=== PATIENT | female | born 1970 | race Caucasian/White ===

== ENCOUNTER 2017-03-04 06:50 | Inpatient (IN) | payer OTHER ==
[~2017-03-04] VITALS: Ht 172.7 cm; Wt 114.8 kg
[~2017-03-04 06:50] MED LIST: CHOL20003 PO; CYCL-259 PO; DEXA4TAB PO; DOXY100T PO; HYDR1TAB12 PO; IBUP-1222 PO; LEVO137T2 PO; LEVO200T PO; LEVO200T5 PO; OMEP-110 PO; PREN1TAB60 PO
[2017-03-04] MEDS ORDERED: SODIUM CHLORIDE 0.9% 1,000 ML IV ONE ×2 (07:16→10:26)
[2017-03-04] MEDS ORDERED: SODIUM CHLORIDE 0.9% 1,000ML IVBOLUS ONE (07:30)
[2017-03-04] MEDS ORDERED: ONDANSETRON 2MG/ML, 2ML IVPush ONE (07:30)
[2017-03-04] MEDS ORDERED: FAMOTIDINE 20 MG/2 ML IVP ONE (07:30)
[2017-03-04] MEDS ORDERED: MORPHINE SULFATE 4 MG/ML, 1ML IVPush PRN (07:30)
[2017-03-04] MEDS ORDERED: FAMOTIDINE 20 MG/2 ML ONE (07:40)
[2017-03-04] MEDS ORDERED: ONDANSETRON 2MG/ML, 2ML ONE (07:40)
[2017-03-04] MEDS ORDERED: MORPHINE SULFATE 4 MG/ML, 1ML ONE (07:40)
[2017-03-04 08:01] LABS: ASPARTATE AMINO TRANSFERASE 130 U/L (15-37); BLOOD UREA NITROGEN 7 mg/dL (7-18)
[2017-03-04] MEDS ORDERED: HYDROmorphone 1 MG/ML, 1ML IVPush PRN (10:30)
[2017-03-04] MEDS ORDERED: ONDANSETRON 2MG/ML, 2ML IVPush PRN (10:30)
[2017-03-04] MEDS ORDERED: SODIUM CHLORIDE FLUSH 10ML SYR IVF PRN (10:30)
[2017-03-04] MEDS: SODIUM CHLORIDE 0.9% 1,000 ML IV SCH ×2 (10:33→20:41)
[2017-03-04 12:13] VITALS: BP 123/81
[2017-03-04] MEDS: ENOXAPARIN 40 MG/0.4 ML SQ SCH (12:40)
[2017-03-04 13:55] VITALS: BP 131/84
[2017-03-04] MEDS ORDERED: KETOROLAC 30 MG/1 ML IVPush PRN (15:30)
[2017-03-04] MEDS ORDERED: DIPHENHYDRAMINE 50 MG/ML, 1ML IVPush PRN (15:30)
[2017-03-04] MEDS: CYCLOBENZAPRINE 10 MG TABLET PO SCH ×2 (15:34→20:36)
[2017-03-04] MEDS: FAMOTIDINE 20 MG/2 ML IVPush SCH (20:37)
[2017-03-04 21:38] VITALS: BP 114/66
[2017-03-05] MEDS: SODIUM CHLORIDE 0.9% 1,000 ML IV SCH ×4 (01:11→17:54)
[2017-03-05 03:57] VITALS: BP 106/67
[2017-03-05 04:41] LABS: ASPARTATE AMINO TRANSFERASE 63 U/L (15-37); BLOOD UREA NITROGEN 7 mg/dL (7-18)
[2017-03-05] MEDS ORDERED: LEVOTHYROXINE 200 MCG TABLET PO SCH (06:00)
[2017-03-05] MEDS: morphine SULFATE 10 MG/ML, 1ML IVPush PRN ×3 (07:12→21:34)
[2017-03-05] MEDS: SENNA/DOCUSATE TABLET PO SCH (09:00)
[2017-03-05] MEDS ORDERED: OMEPRAZOLE 20 MG CAPSULE.DR PO SCH (09:00)
[2017-03-05] MEDS ORDERED: LEVOTHYROXINE 100 MCG INJ IVPush SCH (09:00)
[2017-03-05] MEDS: CYCLOBENZAPRINE 10 MG TABLET PO SCH ×3 (09:10→21:00)
[2017-03-05] MEDS: FAMOTIDINE 20 MG/2 ML IVPush SCH ×2 (09:12→22:48)
[2017-03-05 09:30] VITALS: BP 121/78
[2017-03-05] MEDS: ENOXAPARIN 40 MG/0.4 ML SQ SCH (12:00)
[2017-03-05 13:49] VITALS: BP 129/70
[2017-03-05] MEDS ORDERED: FENTANYL PF 100 MCG/2ML ONE ×2 (14:15→16:13)
[2017-03-05] MEDS ORDERED: MIDAZOLAM 1 MG/ML, 2ML ONE (14:15)
[2017-03-05] MEDS ORDERED: METOCLOPRAMIDE 5 MG/ML, 2ML IV PRN (15:00)
[2017-03-05] MEDS ORDERED: PROMETHAZINE 25 MG/ML, 1ML IV PRN (15:00)
[2017-03-05] MEDS ORDERED: FENTANYL PF 100 MCG/2ML IV PRN (15:00)
[2017-03-05] MEDS ORDERED: MEPERIDINE/PF 25MG/0.5ML IVPush PRN (15:00)
[2017-03-05] MEDS ORDERED: ONDANSETRON 2MG/ML, 2ML IVPush PRN (15:00)
[2017-03-05] MEDS ORDERED: ACETAMINOPHEN 325 MG TABLET PO PRN (15:00)
[2017-03-05] MEDS ORDERED: OXYcodone 5 MG/5 ML ORAL.SOL UDC PO PRN (15:00)
[2017-03-05] MEDS ORDERED: LABETALOL 5MG/ML, 20ML IV PRN (15:00)
[2017-03-05] MEDS ORDERED: hydrALAzine 20 MG/ML, 1ML IV PRN (15:00)
[2017-03-05] MEDS ORDERED: DEXAMETHASONE 4 MG/ML, 1ML ONE (15:29)
[2017-03-05] MEDS ORDERED: ONDANSETRON 2MG/ML, 2ML ONE (15:29)
[2017-03-05] MEDS ORDERED: PROPOFOL 10 MG/ML, 20ML ONE (15:29)
[2017-03-05] MEDS ORDERED: ROCURONIUM 10 MG/ML ONE (15:29)
[2017-03-05] MEDS ORDERED: GLYCOPYRROLATE 0.2MG/1ML ONE (15:29)
[2017-03-05] MEDS ORDERED: CEFOTETAN 2 GM ONE (15:29)
[2017-03-05] MEDS ORDERED: NEOSTIGMINE 1 MG/ML, 10ML ONE (15:29)
[2017-03-05] MEDS ORDERED: BUPIVACAINE/PF-EPI 0.5% 1:200K ONE (15:53)
[2017-03-05] MEDS ORDERED: BUPIVACAINE/PF-EPI 0.5% 1:200K INFIL ONE (15:57)
[2017-03-05] MEDS ORDERED: OXYcodone 5 MG/5 ML ORAL.SOL UDC ONE (16:14)
[2017-03-05] MEDS ORDERED: HYDROmorphone 2 MG/ML, 1ML ONE (16:23)
[2017-03-05] MEDS: HYDROmorphone 1 MG/ML, 1ML IV PRN ×2 (16:26→16:59)
[2017-03-05] MEDS ORDERED: hydrALAzine 20 MG/ML, 1ML ONE (17:04)
[2017-03-05 20:07] VITALS: BP 137/79
[2017-03-05 23:49] VITALS: BP 122/79
[2017-03-05] MEDS: KETOROLAC 30 MG/1 ML IVPush PRN (23:56)
[2017-03-06 03:59] VITALS: BP 108/69
[2017-03-06] MEDS ORDERED: ENOXAPARIN 30 MG/0.3 ML SQ SCH (04:00)
[2017-03-06] MEDS: morphine SULFATE 10 MG/ML, 1ML IVPush PRN ×4 (04:03→20:34)
[2017-03-06] MEDS ORDERED: LEVOTHYROXINE 25 MCG TABLET PO SCH (06:00)
[2017-03-06 06:09] LABS: BLOOD UREA NITROGEN 7 mg/dL (7-18)
[2017-03-06] MEDS: SODIUM CHLORIDE 0.9% 1,000 ML IV SCH ×2 (06:36→22:35)
[2017-03-06] MEDS: KETOROLAC 30 MG/1 ML IVPush PRN ×3 (06:36→20:34)
[2017-03-06] MEDS: LEVOTHYROXINE 150 MCG TABLET PO SCH ×2 (06:42→09:20)
[2017-03-06 07:04] VITALS: BP 123/85
[2017-03-06] MEDS: LEVOTHYROXINE 137 MCG TABLET PO SCH (08:30)
[2017-03-06] MEDS: CYCLOBENZAPRINE 10 MG TABLET PO SCH ×3 (09:21→22:35)
[2017-03-06] MEDS: FAMOTIDINE 20 MG/2 ML IVPush SCH ×2 (09:22→22:35)
[2017-03-06] MEDS: SENNA/DOCUSATE TABLET PO SCH (09:39)
[2017-03-06 13:57] VITALS: BP 121/84
[2017-03-06] MEDS: ONDANSETRON 2MG/ML, 2ML IVPush PRN (17:11)
[2017-03-06 20:00] VITALS: BP 109/64
[2017-03-07] MEDS: ONDANSETRON 2MG/ML, 2ML IVPush PRN ×2 (00:14→06:37)
[2017-03-07] MEDS: morphine SULFATE 10 MG/ML, 1ML IVPush PRN ×2 (00:14→06:36)
[2017-03-07 01:00] VITALS: BP 90/60
[2017-03-07] MEDS ORDERED: ENOXAPARIN 30 MG/0.3 ML SQ SCH (03:55)
[2017-03-07] MEDS: KETOROLAC 30 MG/1 ML IVPush PRN (06:36)
[2017-03-07] MEDS: LEVOTHYROXINE 137 MCG TABLET PO SCH (06:36)
[2017-03-07 08:17] VITALS: BP 109/73
[2017-03-07] MEDS: CYCLOBENZAPRINE 10 MG TABLET PO SCH (08:38)
[2017-03-07] MEDS: FAMOTIDINE 20 MG/2 ML IVPush SCH (08:38)
[2017-03-07] MEDS ORDERED: LEVO200T PO (08:54)
[2017-03-07] MEDS ORDERED: SENNA/DOCUSATE TABLET PO SCH (09:00)
[2017-03-07] MEDS ORDERED: HYDROcodone/APAP 7.5-325MG/15ML UDC PO PRN (11:00)
[2017-03-07] MEDS ORDERED: HYDR-882 PO ×2 (12:05→12:08)
[2017-03-07 13:00] VITALS: BP 123/82
== END 2017-03-07 13:15 | disposition home or self-care (01) | DRG 418 ==
LOC: ED 08:35 → EDIP 10:26 → 3NW 11:32 → 4NOR 03-05 17:39
PROC: 0FT44ZZ Resection of Gallbladder, Percutaneous Endoscopic Approach (ICD-10-PCS; principal; 2017-03-05 15:30)
DX: K80.01 Calculus of gallbladder with acute cholecystitis with obstruction (principal); N30.01 Acute cystitis with hematuria; K21.9 Gastro-esophageal reflux disease without esophagitis; E87.6 Hypokalemia; E03.9 Hypothyroidism, unspecified; E66.01 Morbid (severe) obesity due to excess calories; R33.9 Retention of urine, unspecified; Z85.850 Personal history of malignant neoplasm of thyroid; Z98.84 Bariatric surgery status; Z68.35 Body mass index [BMI] 35.0-35.9, adult; Z91.012 Allergy to eggs; Z88.0 Allergy status to penicillin; Z91.030 Bee allergy status; Z72.89 Other problems related to lifestyle; Z82.49 Family history of ischemic heart disease and other diseases of the circulatory system; Z86.718 Personal history of other venous thrombosis and embolism; K66.0 Peritoneal adhesions (postprocedural) (postinfection)
CPT/HCPCS: 36415; 74022; 74181; 76700; 80048; 80053; 81001; 83690; 84439; 84443; 84703; 85025; 87086; 88304; 96361; 96374; 96375; J1100; J1170; J1650; J1885; J2250; J2405; J2704; J2710; J3010; J3490; J0360; J2270; J7030; S0028; S0074